=== PATIENT | female | born 1960 | race Caucasian/White ===

== ENCOUNTER → 2018-09-25 | Day surgery (SDC) | payer MEDICARE ==
[2018-09-20 11:41] LABS: BASOPHILS # (AUTO) 0.1 (0.0-0.1); BASOPHILS % 0.4 % (0.0-1.0); EOSINOPHILS # (AUTO) 0.3 (0.0-0.4); HEMOGLOBIN 11.3 g/dL (12.0-16.0); LYMPHOCYTES % 27.2 % (18.0-39.1); MEAN CORPUSCULAR HEMOGLOBIN 29.9 pg (28-32); MEAN CORPUSCULAR HGB CONC 31.4 g/dL (31-35); MEAN CORPUSCULAR VOLUME 95.2 fL (81-99); MONOCYTES # (AUTO) 1.1 (0.2-0.8); MONOCYTES % 7.6 % (4.4-11.3); NEUTROPHILS # (AUTO) 9.2 (2.1-6.9); NEUTROPHILS % 62.4 % (38.7-80.0); PLATELET COUNT 326 x10e3/uL (140-360); RED BLOOD COUNT 3.78 x10e6/uL (3.6-5.1); RED CELL DISTRIBUTION WIDTH 13.2 % (11.7-14.4)
[2018-09-20 12:01] LABS: ANION GAP 20.6 mmol/L (8-16); CALCIUM 10.4 mg/dL (8.4-10.2); CREATININE, SERUM 1.06 mg/dL (0.57-1.11); POTASSIUM 4.6 mmol/L (3.5-5.1)
--- NOTE | 2018-09-20 12:09 | Diagnostic Imaging Report ---
EXAM: CHEST 2 VIEWS, PA and lateral DATE: 09/20/2018 Time stamp on exam: 11:28 AM INDICATION: Preoperative COMPARISON: None FINDINGS: LINES/TUBES: None LUNGS: No consolidations or edema. Chronic appearing basilar interstitial changes. PLEURA: No effusions or pneumothorax. HEART AND MEDIASTINUM: Heart is mildly enlarged. BONES AND SOFT TISSUES: No acute findings. IMPRESSION: Mild cardiomegaly with chronic appearing interstitial changes. Signed by: Dr. Brian Salinas DO on 09/20/2018 12:06 PM
[~2018-09-25] MED LIST: ATORVASTATIN CA20 MG PO; CEFAZOLIN SOD 1 GM/NS 50ML 50 ML IV ONE; CELEXA20 MG PO; CHROMIUM PIC1000 MCG PO; CLOPIDOGREL75 MG PO; DESLORATADINE5 MG PO; FENTANYL CITRATE/PF 100MCG/2 ML INJ ONE; GLIMEPIRIDE2 MG PO; HYDROCHLOROTHIA25 MG PO; LAMOTRIGINE100 MG PO; LIDOCAINE HCL 2% LOCAL INJ 5 ML SDV VIAL INJ ONE; LISINOPRIL10 MG PO; METFORMIN HCL850 MG PO; MONTELUKAST SOD10 MG PO; NORCO 7.5-3251 EACH PO; ONDANSETRON HCL INJ 2MG/ML 2ML 2 MG/ML VIAL ONE; PROPOFOL IV EMULSION 10 MG/ML 20 ML VIAL ONE; PROVENTIL HFA6.7 GM IH; QUETIAPINE FUMA50 MG PO; SEVOFLURANE INHAL SOLN 250 ML PEN BTL ONE
--- OUTSIDE RECORDS SUMMARY | 2018-09-25 05:59 | XMS REPORT ---
Author Author [facility] Address Unknown Phone Unavailable Care Team Providers Care Ultrasound Technician Name Role Phone MINESH SANDOVAL Unavailable Unavailable Problems This patient has no known problems. Allergies, Adverse Reactions, Alerts This patient has no known allergies or adverse reactions. Medications This patient has no known medications. Results Test Description Test Time Test Comments Text Results Atomic Results Result Comments CHEST 2 VIEWS 2018-09-20 12:04:00 [place] [address] Patient Name: SCOTTY WILLS MR #: [id number] : 1960 Age/Sex: 58/F Req #: [id number] [facility] Physician: Ordered by: MINESH SANDOVAL MD Report #: [id number] Location: OR Room/Bed: Procedure: [id number] DX/CHEST 2 VIEWS Exam Date: Exam Time: REPORT STATUS: Signed EXAM: CHEST 2 VIEWS, PA and lateral DATE: 09/20/2018 Time stamp on exam: 11:28 AM INDICATION: Preoperative COMPARISON: None FINDINGS: LINES/TUBES: None LUNGS: No consolidations or edema. Chronic appearing basilar interstitial changes. PLEURA: No effusions or pneumothorax. HEART AND MEDIASTINUM: Heart is mildly enlarged. BONES AND SOFT TISSUES: No acute findings. IMPRESSION: Mild cardiomegaly with chronic appearing interstitial changes. Signed by: Dr. Naty Salinas DO on 09/20/2018 12:06 PM Dictated By: NATY SALINAS DO 1206 Transcribed By: ASHLEIGH on 09/20/18 1206 COPY TO: MINESH SANDOVAL MD
--- NOTE | 2018-09-25 08:27 | Operative Report ---
DATE OF PROCEDURE: 09/25/2018 SURGEON: Ortiz English MD MORTGAGE COLLECTOR: Khanh Paula PA-C. PREOPERATIVE DIAGNOSIS: Right carpal tunnel syndrome. POSTOPERATIVE DIAGNOSIS: Right carpal tunnel syndrome. PROCEDURE: Right endoscopic carpal tunnel release. INDICATIONS: The patient is a 58-year-old lady with multiple medical problems. She has clinic signs and symptoms consistent with right carpal tunnel syndrome. She has failed conservative management and would like to proceed with a right endoscopic versus open carpal tunnel release. The risks and benefits of the procedure have been discussed. She states she understands and wishes to proceed. PROCEDURE IN DETAIL: The patient was brought to the operating room and placed under general anesthetic. Her right upper extremity was prepped and draped in a sterile manner. A preoperative time-out was performed. The extremity was exsanguinated and a proximal tourniquet was briefly inflated to 250 mmHg. A transverse incision was made over the flexion crease of the right wrist. The palmaris longus was retracted to the radial side of the wound. The flexor retinaculum was elevated and incised. An elevator was used to tease the tenosynovium off the undersurface of the transverse carpal ligament. Dilators were placed and the hook of the hamate was palpated. The MicroAire endoscope was then placed into the carpal tunnel. The undersurface of the transverse carpal ligament was cleanly visualized without evidence of soft tissue interposition. The knife was deployed and the ligament was cut from distal to proximal. A full-thickness cut was noted. The proximal retinaculum was incised under direct visualization. The incision was then closed with interrupted nylon stitches. A sterile bandage was applied. She was extubated and transported to the recovery room in stable condition. There was no blood loss and all needle and sponge counts were correct. Ortiz English MD DR/KALLIE /[id number]
[2018-09-25 08:45] VITALS: BP 100/63
== END | disposition home or self-care (01) ==
LOC: OR 05:19
PROVIDERS: ATTEND Specialist
DX: G56.01 Carpal tunnel syndrome, right upper limb (principal); I69.898 Other sequelae of other cerebrovascular disease; R53.1 Weakness; J44.9 Chronic obstructive pulmonary disease, unspecified; I10 Essential (primary) hypertension; E11.9 Type 2 diabetes mellitus without complications; N20.0 Calculus of kidney; K21.9 Gastro-esophageal reflux disease without esophagitis; R00.0 Tachycardia, unspecified; F31.9 Bipolar disorder, unspecified; Z88.1 Allergy status to other antibiotic agents; Z88.2 Allergy status to sulfonamides; Z88.8 Allergy status to other drugs, medicaments and biological substances; Z01.810 Encounter for preprocedural cardiovascular examination; Z01.812 Encounter for preprocedural laboratory examination; Z01.818 Encounter for other preprocedural examination; Z79.02 Long term (current) use of antithrombotics/antiplatelets; Z79.84 Long term (current) use of oral hypoglycemic drugs; Z68.35 Body mass index [BMI] 35.0-35.9, adult
CPT/HCPCS: 29848; 36415 ×2; 71046; 80048; 82948; 85025; 93005; J0690; J2001; J2405; J2704; J3010

== ENCOUNTER → 2020-01-07 | Outpatient (CLI) | payer MEDICARE ==
[~2020-01-07] MED LIST changes: +ALBUTEROL0.63 MG/3 NEB; -CEFAZOLIN SOD 1 GM/NS 50ML 50 ML IV ONE; +CHROMIUM PICO200 MC1 PO; +CRESTOR10 MG PO; -FENTANYL CITRATE/PF 100MCG/2 ML INJ ONE; -LIDOCAINE HCL 2% LOCAL INJ 5 ML SDV VIAL INJ ONE; +NORCO 10-325 T1 EACH PO; -ONDANSETRON HCL INJ 2MG/ML 2ML 2 MG/ML VIAL ONE; -PROPOFOL IV EMULSION 10 MG/ML 20 ML VIAL ONE; +REGADENOSON 0.4 MG/5 ML SYR IV ONE; -SEVOFLURANE INHAL SOLN 250 ML PEN BTL ONE
== END ==
LOC: NM 10:09
PROVIDERS: ATTEND Internal Medicine
DX: R94.31 Abnormal electrocardiogram [ECG] [EKG] (principal)
CPT/HCPCS: 78452; 93017; 93306; A9502; J2785

== ENCOUNTER → 2020-01-29 | Day surgery (SDC) | payer MEDICARE, OTHER ==
[2020-01-24 11:13] LABS: BASOPHILS # (AUTO) 0.1 (0.0-0.1); BASOPHILS % 0.5 % (0.0-1.0); EOSINOPHILS # (AUTO) 0.3 (0.0-0.4); EOSINOPHILS % 2.3 % (0.0-6.0); HEMATOCRIT 33.9 % (34.2-44.1); HEMOGLOBIN 10.5 g/dL (12.0-16.0); LYMPHOCYTES # (AUTO) 1.3 (1.0-3.2); LYMPHOCYTES % 9.8 % (18.0-39.1); MEAN CORPUSCULAR HEMOGLOBIN 27.5 pg (28-32); MEAN CORPUSCULAR VOLUME 88.7 fL (81-99); MONOCYTES # (AUTO) 0.9 (0.2-0.8); MONOCYTES % 6.3 % (4.4-11.3); NEUTROPHILS # (AUTO) 10.9 (2.1-6.9); NEUTROPHILS % 80.7 % (38.7-80.0); PLATELET COUNT 323 x10e3/uL (140-360); RED BLOOD COUNT 3.82 x10e6/uL (3.6-5.1); RED CELL DISTRIBUTION WIDTH 14.9 % (11.7-14.4)
[2020-01-24 11:37] LABS: INR 1.01; PROTHROMBIN TIME 13.8 seconds (11.9-14.5)
[2020-01-24 11:40] LABS: ALANINE AMINOTRANSFERASE 6 IU/L (0-55); ALBUMIN 3.5 g/dL (3.5-5.0); ALKALINE PHOSPHATASE 116 IU/L (40-150); ANION GAP 18.3 mmol/L (8-16); BLOOD UREA NITROGEN 11 mg/dL (7-26); BUN/CREATININE RATIO 14 (6-25); CARBON DIOXIDE 35 mmol/L (22-29); CHLORIDE 89 mmol/L (98-107); CREATININE, SERUM 0.81 mg/dL (0.57-1.11); EST GLOMERULAR FILTRATION RATE > 60 ML/MIN (60-); GLUCOSE 89 mg/dL (74-118); POTASSIUM 4.3 mmol/L (3.5-5.1); SODIUM 138 mmol/L (136-145)
[~2020-01-29] VITALS: Ht 154.9 cm; Wt 85.3 kg
[~2020-01-29] MED LIST changes: +FENTANYL CITRATE/PF 100MCG/2 ML INJ ONE; +HEPARIN SOD (PORCINE) 1000 UNIT/ML 30ML ONE; +HEPARIN SOD/SOD CHLORIDE 2,000 ML ONE; +IOPAMIDOL 370 MG/ML 200 ML INFUS..BTL INJ ONE; +LIDOCAINE HCL 2% LOCAL 20 ML VIAL ONE; +MIDAZOLAM HCL 2 MG/2 ML VIAL ONE; +NITROGLYCERIN/D5W 200 MCG/ML 250 ML ONE; -REGADENOSON 0.4 MG/5 ML SYR IV ONE; +SODIUM CHLORIDE 0.9% 1000ML 1,000 ML ONE; +VERAPAMIL HCL 2.5 MG/ML 2 ML VIAL ONE
[2020-01-29 09:31] VITALS: BP 107/89
--- NOTE | 2020-01-29 09:31 | NUR ---
0931am Recovery phase initiated TR band approach No fix Bedside report received from Sheela Ovalles RN. Alert oriented and appropriate, PERRLA, respirations even and unlabored to room air. Pulses x4 extremities equal and strong. Right hand + neurovascular function Cap fill brisk < 3 sec. TR band present w/ reported 14ml to band. No s/s of hematoma or gross abnormality. TR band reduction at 1030am. Skin warm and dry integrity appears intact. IV 0.9Ns to left hand, presents healthy w/o s/s of infiltration or complaint. Angiomax infusion @ 32.9 ml till complete. Abdomen soft and supple. pt offered toileting, denies need to urinate or defecate. No personal affects with patient. Family not available. Pt understanding of POC. Bedside monitoring re-initiated. Currently w/o complaint of pain or need. Call light within reach, bed low and locked, side rails up x2. pt using personal mask for COVID-19 mitigation. ds/rn
[2020-01-29 09:45] VITALS: BP 107/90
[2020-01-29 10:00] VITALS: BP 109/78
--- NOTE | 2020-01-29 10:05 | Operative Report ---
DATE OF PROCEDURE: 01/29/2020 SURGEON: Tres Grayson MD INDICATION FOR PROCEDURE: Preoperative cardiovascular evaluation and chest pain. PREPROCEDURE ASSESSMENT: The risks, benefits, and alternatives to treatment were explained to the patient prior to the procedure. Informed consent was obtained and documented in the medical record. MEDICATIONS: Please see nursing notes for medications administered throughout the procedure. PROCEDURES PERFORMED: 1. Coronary angiography. 2. Left heart catheterization. 3. Moderate sedation time, 30 minutes. PROCEDURE DETAILS: The patient was brought to the cardiac catheterization laboratory in a fasting state. Right wrist was prepped and draped in a sterile fashion. A 6-Israeli Slender sheath was inserted in the right radial artery using modified Seldinger technique. Coronary angiography was performed using a 5-Israeli Ragini radial catheter to engage both the left and right coronary arteries. Left heart catheterization was performed using the same 5-Israeli Ragini radial catheter. All catheters were removed over a wire. There were no immediate complications. Access site was closed using a TR band device. GRAFTS AND IMPLANTS: None. SPECIMEN REMOVED: None. ESTIMATED BLOOD LOSS: Less than 10 mL. COMPLICATIONS: None. SIGNIFICANT FINDINGS: Right dominant coronary system without any significant coronary artery disease. LV end-diastolic pressure of about 18 to 20 mmHg. No gradient across the aortic valve. FINAL RECOMMENDATION: 1. The patient is cleared to undergo any surgery plan from cardiovascular standpoint is a low risk for perioperative cardiovascular CO. 2. Follow up in the office with in 1 to 2 weeks post procedure. Tres Grayson MD KVP/MODL /[id number]
[2020-01-29 10:30] VITALS: BP 124/82
--- NOTE | 2020-01-29 10:30 | NUR ---
1030a RADIAL Compression removal: Initial Cuff volume 13 cc 1030 -3cc Removed No hematoma/bleeding noted with normal neurovascular function. 1045 -5cc Removed No hematoma/ bleeding noted with normal neurovascular function. 1100 -5cc Removed No hematoma/bleeding noted with normal neurovascular function. Air removal completed. Stasis achieved sterile 2x2,Tegaderm, Coban dressing No hematoma, bleeding noted with normal neurovascular function.. Pt instructed on POC. Ds/Rn
[2020-01-29 11:00] VITALS: BP 136/77
[2020-01-29 11:30] VITALS: BP 136/77
--- NOTE | 2020-01-29 11:30 | NUR ---
1130a Pt meets discharge criteria. VS wnl, alert and oriented. Pt and Family Understands discharge instruction. Overall general assess w/o gross outliers. Skin warm, dry, and intact. Right radial dressing soft w/o s/s of hematoma. + neurovascular function of right hand present. IV removed and appears distal tip is intact. Pt maintains mask on for COVID 19 precautions being taken by wheel chair to awaiting car. Transfers w/o gross distress with discharge paperwork in hand.-ds/rn
== END | disposition home or self-care (01) ==
LOC: CATH LAB 07:32
PROVIDERS: ATTEND Internal Medicine
DX: I25.10 Atherosclerotic heart disease of native coronary artery without angina pectoris (principal); R94.31 Abnormal electrocardiogram [ECG] [EKG]; E78.49 Other hyperlipidemia; J44.9 Chronic obstructive pulmonary disease, unspecified; E13.69 Other specified diabetes mellitus with other specified complication; M81.0 Age-related osteoporosis without current pathological fracture; F31.9 Bipolar disorder, unspecified; F17.210 Nicotine dependence, cigarettes, uncomplicated; Z88.1 Allergy status to other antibiotic agents; Z88.2 Allergy status to sulfonamides; Z01.812 Encounter for preprocedural laboratory examination; Z11.59 Encounter for screening for other viral diseases; Z79.02 Long term (current) use of antithrombotics/antiplatelets; Z68.35 Body mass index [BMI] 35.0-35.9, adult; Z86.73 Personal history of transient ischemic attack (TIA), and cerebral infarction without residual deficits; Z82.49 Family history of ischemic heart disease and other diseases of the circulatory system; Z83.3 Family history of diabetes mellitus
CPT/HCPCS: 36415; 80053; 85025; 85610; 93458; C1887; J1644; J2001; J2250; J3010; J7030; Q9967; U0002; 99153

== ENCOUNTER → 2020-05-29 | Outpatient (CLI) | payer MEDICARE ==
[~2020-05-29] MED LIST changes: -FENTANYL CITRATE/PF 100MCG/2 ML INJ ONE; -HEPARIN SOD (PORCINE) 1000 UNIT/ML 30ML ONE; -HEPARIN SOD/SOD CHLORIDE 2,000 ML ONE; -IOPAMIDOL 370 MG/ML 200 ML INFUS..BTL INJ ONE; -LIDOCAINE HCL 2% LOCAL 20 ML VIAL ONE; -MIDAZOLAM HCL 2 MG/2 ML VIAL ONE; -NITROGLYCERIN/D5W 200 MCG/ML 250 ML ONE; +ROPIVACAINE 246.25 MG, EPINEPHRINE HCL 1:1000 1ML 0.5 MG, CLONIDINE HCL 0.08 MG, KETORO... INJ ONE; -SODIUM CHLORIDE 0.9% 1000ML 1,000 ML ONE; -VERAPAMIL HCL 2.5 MG/ML 2 ML VIAL ONE; +VIT C PO; +ZINC PO
[2020-05-29 16:00] LABS: BASOPHILS # (AUTO) 0.1 (0.0-0.1); BASOPHILS % 0.5 % (0.0-1.0); EOSINOPHILS # (AUTO) 0.5 (0.0-0.4); EOSINOPHILS % 3.4 % (0.0-6.0); HEMATOCRIT 34.8 % (34.2-44.1); HEMOGLOBIN 10.3 g/dL (12.0-16.0); LYMPHOCYTES # (AUTO) 2.7 (1.0-3.2); LYMPHOCYTES % 18.5 % (18.0-39.1); MEAN CORPUSCULAR HEMOGLOBIN 27.5 pg (28-32); MEAN CORPUSCULAR HGB CONC 29.6 g/dL (31-35); NEUTROPHILS # (AUTO) 10.4 (2.1-6.9); NEUTROPHILS % 70.1 % (38.7-80.0); PLATELET COUNT 369 x10e3/uL (140-360); RED BLOOD COUNT 3.74 x10e6/uL (3.6-5.1); RED CELL DISTRIBUTION WIDTH 15.3 % (11.7-14.4)
[2020-05-29 16:19] LABS: ANION GAP 21.6 mmol/L (8-16); BLOOD UREA NITROGEN 15 mg/dL (7-26); BUN/CREATININE RATIO 19 (6-25); CALCIUM 9.7 mg/dL (8.4-10.2); CARBON DIOXIDE 34 mmol/L (22-29); CHLORIDE 93 mmol/L (98-107); CREATININE, SERUM 0.78 mg/dL (0.57-1.11); EST GLOMERULAR FILTRATION RATE > 60 ML/MIN (60-); GLUCOSE 89 mg/dL (74-118); POTASSIUM 4.6 mmol/L (3.5-5.1); SODIUM 144 mmol/L (136-145)
== END ==
LOC: DX 16:02 → EDSTATUS 06-01 08:00 → OR 06-01 16:02 → DX 06-01 16:02
PROVIDERS: ATTEND Specialist
DX: M16.12 Unilateral primary osteoarthritis, left hip (principal); Z53.9 Procedure and treatment not carried out, unspecified reason; Z01.810 Encounter for preprocedural cardiovascular examination; Z01.812 Encounter for preprocedural laboratory examination; Z01.818 Encounter for other preprocedural examination; Z20.822 Contact with and (suspected) exposure to COVID-19
CPT/HCPCS: 36415; 71046; 80048; 85025; 86850; 86900; 86920; 93005; U0002; J0171; J1885; J2795

== ENCOUNTER → 2020-06-12 | Outpatient (CLI) | payer MEDICARE ==
[~2020-06-12] MED LIST changes: +IOPAMIDOL 370 MG/ML 200 ML INFUS..BTL INJ ONE; -ROPIVACAINE 246.25 MG, EPINEPHRINE HCL 1:1000 1ML 0.5 MG, CLONIDINE HCL 0.08 MG, KETORO... INJ ONE; +SODIUM CHLORIDE 0.9% 50ML 50 ML ONE
[2020-06-12 09:17] LABS: BLOOD UREA NITROGEN 14 mg/dL (7-26); BUN/CREATININE RATIO 17 (6-25); CREATININE, SERUM 0.81 mg/dL (0.57-1.11); EST GLOMERULAR FILTRATION RATE > 60 ML/MIN (60-)
== END ==
LOC: CT 08:23
PROVIDERS: ATTEND Internal Medicine
DX: R91.8 Other nonspecific abnormal finding of lung field (principal)
CPT/HCPCS: 36415; 71260; 82565; 84520; Q9967

== ENCOUNTER → 2020-07-16 | Outpatient (CLI) | payer MEDICARE ==
[~2020-07-16] MED LIST changes: +FENTANYL CITRATE/PF 100MCG/2 ML INJ ONE; -IOPAMIDOL 370 MG/ML 200 ML INFUS..BTL INJ ONE; +MIDAZOLAM HCL 2 MG/2 ML VIAL ONE; -SODIUM CHLORIDE 0.9% 50ML 50 ML ONE
[2020-07-16 08:54] LABS: INR 0.95; PROTHROMBIN TIME 13.3 seconds (11.9-14.5)
[2020-07-16 08:55] LABS: PARTIAL THROMBOPLASTIN TIME 32.4 seconds (23.8-35.5)
== END ==
LOC: CT 08:02
PROVIDERS: ATTEND Internal Medicine
DX: R91.8 Other nonspecific abnormal finding of lung field (principal); F17.210 Nicotine dependence, cigarettes, uncomplicated
CPT/HCPCS: 10009; 32408; 36415; 71045; 85014; 85049; 85610; 85730; 88172; 88173; 88305; 88342; J2250; J3010; U0002; 99152; 99153